=== PATIENT | female | born 1950 | race Caucasian/White ===

== ENCOUNTER 2017-06-02 14:28 | Inpatient (IN) | payer MEDICARE, OTHER ==
[~2017-06-02] VITALS: Ht 161.3 cm; Wt 87.0 kg
[~2017-06-02 14:28] MED LIST: ASPIR-LOW81 MG PO; HCTZ 25MG25 MG PO; HUMALOG PEN100 U/ML; HUMALOG100 U/ML SC; LANTUS SOLOS100 U/ML SC; LANTUS SQ; LANTUS100 U/ML SC; LIPITOR 80MG80 MG PO; LISINOPRIL20 MG PO; LOPRESSOR 225 MG/TAB PO; METFORMIN HCL1000 MG PO; MICRONASE5 MG PO; PRILOSEC 20MG20 MG PO; PROZAC 20MG20 MG PO; RANITIDINE HYD150 MG PO; REGLAN5 MG PO; SYNTHROID0.1 MG/TAB PO; TYLENOL 325MG325 MG PO; ULTRAM 50MG TAB50 MG PO
[2017-07-03] MEDS ORDERED: VITAMINC1000TA (15:37)
[2017-07-03] MEDS ORDERED: ASPIRIN 81M81 MG/TA2 PO (15:37)
[2017-07-03] MEDS ORDERED: HCTZ 25MG TAB25 MG PO (15:38)
[2017-07-03] MEDS ORDERED: LIPITOR 80MG80 MG PO (15:38)
[2017-07-03] MEDS ORDERED: COZAAR 25MG25 MG/TAB PO (15:39)
[2017-07-03] MEDS ORDERED: PROZAC 10MG10 MG PO (15:39)
[2017-07-03] MEDS ORDERED: LANTUS100 U/ML SQ (15:40)
[2017-07-03] MEDS ORDERED: HUMALOG100 U/ML (15:41)
[2017-07-06] VITALS (10 sets, daily range): BP systolic 134–187; BP diastolic 61–82; PULSE 65–80; TEMP 97–98.9
[2017-07-06] MEDS ORDERED: MULTI VITAMINS1 TAB PO (07:43)
[2017-07-06] MEDS ORDERED: VITAMINE200 PO (07:43)
[2017-07-07 00:23] VITALS: BP 153/67; PULSE 76; TEMP 98.5
[2017-07-07 03:52] VITALS: BP 153/78; PULSE 77; TEMP 98.8
[2017-07-07 06:37] LABS: HEMATOCRIT 34.3 % (37.0-47.0); HEMOGLOBIN 11.8 g/dl (12.5-16.0)
[2017-07-07 07:51] VITALS: BP 163/75; PULSE 70; TEMP 98.1
[2017-07-07] MEDS ORDERED: NORCO 325 MG-7.1 TAB PO (11:18)
[2017-07-07] MEDS ORDERED: ROXICODONE 55 MG/TAB PO (11:19)
== END 2017-07-07 11:30 | disposition home or self-care (01) | DRG 483 ==
LOC: JCC 07-06 07:09
PROVIDERS: Orthopaedic Surgery
PROC: 0RRJ0JZ Replacement of Right Shoulder Joint with Synthetic Substitute, Open Approach (ICD-10-PCS; principal; 2017-07-06 10:35)
DX: M19.011 Primary osteoarthritis, right shoulder (principal); I10 Essential (primary) hypertension; E11.9 Type 2 diabetes mellitus without complications; Z79.4 Long term (current) use of insulin; I25.10 Atherosclerotic heart disease of native coronary artery without angina pectoris; Z95.5 Presence of coronary angioplasty implant and graft
CPT/HCPCS: A9284; C1713; C1776; J0171; J0690; J1100; J1815; J2250; J2405; J2704; J2765; J2795; J3010; J7030; J7042